=== PATIENT | female | born 1990 | race Caucasian/White ===

== ENCOUNTER 2017-01-17 12:36 | Emergency (ER) | payer OTHER ==
[~2017-01-17] VITALS: Wt 78.0 kg
[~2017-01-17 12:36] MED LIST: FERR240T9 PO; PRENAT PO
[2017-01-17] MEDS ORDERED: ONDANSETRON (ODT) 4 MG TAB ODT STA (12:57)
--- NOTE | 2017-01-17 12:57 | ERD ---
ER Documentation Chief Complaint Date/Time DATE: 01/17/17 TIME: 12:53 Chief Complaint R LOWER ABD PAIN FOR 1 HR. SUDDEN ONSET WITH NAUSEA NO VOMITING. HPI 26-year-old female who presents to the emergency room for right lower abdominal pain for 1 hour. Stated it is sudden onset with nausea but no vomiting. She has history of left ovarian cyst. Reports that she has slight difficulty walking due to her pain. Denies headache, loss of consciousness, dizziness, blurry vision, changes in vision, photophobia, facial pain, ear pain, throat pain, difficulty swallowing, neck pain, shoulder pain, chest pain, cough, hemoptysis, back pain, loss of appetite, vomiting, hematochezia, diarrhea, constipation, urinary symptoms, , the possibility of being , bladder and bowel incontinences, extremity weakness, extremity tenderness, numbness or tingling sensation, recent travel, recent exposure to illness, recent antibiotic use in the last 3 months, fever, chills. Allergy: No known drug allergies. PMH: Hyperthyroidism. Left ovarian cyst. Family medical history: Denies. AO LMP: 01/11/2017 Medications: Surgery: Denies. Primary Social History: Not working at this time. Denies smoking, use of alcohol, use of illegal drugs. ROS All systems reviewed and are negative except as per history of present illness. Medications Home Meds Active Scripts Ondansetron Hcl* (Zofran*) 4 Mg Tablet, 4 MG PO Q8H Y for NAUSEA AND/OR VOMITING , #30 TAB Prov:ELTON DOMINGUEZ F 01/17/17 Tramadol HCl (Tramadol HCl) 50 Mg Tablet, 50 MG PO Q6 Y for PAIN, #20 TAB Prov:LAZARA DOMINGUEZAR F 01/17/17 Reported Medications Ferrous Gluconate (Iron) 1 Tab Tablet, 1 TAB PO DAILY 06/28/15 Multivit/Min/Fol Ac/Iron/Pren* ( S*) 1 Tab Tab, 1 TAB PO DAILY, TAB 05/30/15 Allergies Allergies: Coded Allergies: No Known Allergy (Unverified , 11/21/14) PMhx/Soc History of Surgery: No Anesthesia Reaction: No Hx Neurological Disorder: No Hx Respiratory Disorders: No Hx Cardiac Disorders: No Hx Psychiatric Problems: No Hx Miscellaneous Medical Probl: Yes (HYPERTHYROIDISM; OVARIAN CYST) Hx Alcohol Use: No Hx Substance Use: No Hx Tobacco Use: No Physical Exam Vitals Vital Signs Date Time Temp Pulse Resp B/P Pulse Ox O2 Delivery O2 Flow Rate FiO2 01/17/17 12:38 98.8 71 20 138/84 9 Physical Exam CONSTITUTIONAL: Well-appearing; well-nourished; in no apparent distress. HEAD: Normocephalic; atraumatic. EYES: Conjunctiva clear, sclera non-icteric, EOM intact. PERRL Ears: Hearing intact. EACs clear, TMs non-bulging, non-inflamed, translucent & mobile, ossicles normal appearance, No obstructions, no erythema, no discharges Nose: No obstructions. No polyps. No external lesions. Mucosa non-inflamed. No external lesions, septum and turbinates normal. No rhinorrhea. No discharges. Frontal sinus is non-tender to palpation. Maxillary sinus is non-tender to palpation. MOUTH: Moist mucous membranes, no lesion, no obstructions, no vesicles, no thrush, patent airway Throat: Uvula in midline. Right tonsil is +1 with no erythema, no exudate. Left tonsil is +1 with no erythema, no exudate. Tolerating secretions well. Good gag reflex. Patent airway. Neck: Supple, without lesions, bruits, or adenopathy. No mass. Thyroid non- enlarged and non-tender to palpation. CHEST: Symmetrical chest. Respirations even and not labored. No retractions noted. CARDIOVASCULAR: Normal S1, S2. RRR. No murmurs, gallops. RESPIRATORY: Normal chest excursion with respiration; breath sounds clear and equal bilaterally; no wheezes, rhonchi, or rales. Breathing even and unlabored. Speaking in clear, full, and complete sentences w/ ease. ABDOMEN: Normal bowel sounds normal. Soft, round, non-distended, non-guarding, no tenderness, no rebound, no organomegaly, no masses, no pulsating abdominal mass. No hernia. No peritoneal signs. : No CVA tenderness. BACK: Symmetrical shoulder. Spine is midline without deformity, tenderness. No evidence of trauma or deformity. PELVIS: Stable pelvis. No evidence of trauma or deformity. MUSCULOSKELETAL: Normal gait and station. No misalignment, asymmetry, crepitation, defects, tenderness, masses, effusions, decreased range of motion, instability, atrophy or abnormal strength or tone in the head, neck, spine, ribs , pelvis or extremities. No calf tenderness. NEUROVASCULAR: Distal pulses are present. Pedal pulse are present, equal, and normal. Capillary refills are < 2 seconds. NEUROLOGIC: Alert and oriented x4. Speaks full and clear sentences. Cranial Nerves II-XII normal. Sensation to pain, touch, and proprioception normal. Grossly unremarkable. No neurologic deficits. Romberg test is negative. PSYCHOLOGICAL: The patients mood and manner are appropriate. No hallucinations , delusions. Not SI. Not HI. Has the capacity to decide for self SKIN: Normal for age and ethnicity; warm; dry; good turgor; no apparent lesions or exudates. No rashes, hives, discoloration. Intact. Result Diagram: 01/17/17 1318 01/17/17 1318 Results 24 hrs Laboratory Tests Test 01/17/17 13:18 White Blood Count 7.010^3/ul Red Blood Count 4.5510^6/ul Hemoglobin 12.5g/dl Hematocrit 38.1% Mean Corpuscular Volume 83.7fl Mean Corpuscular Hemoglobin 27.5pg Mean Corpuscular Hemoglobin Concent 32.8g/dl Red Cell Distribution Width 13.8% Platelet Count 88574^3/UL Mean Platelet Volume 11.6fl Neutrophils % 70.8% Lymphocytes % 22.0% Monocytes % 5.9% Eosinophils % 0.4% Basophils % 0.6% Nucleated Red Blood Cells % 0.0/100WBC Neutrophils # 4.910^3/ul Lymphocytes # 1.510^3/ul Monocytes # 0.410^3/ul Eosinophils # 0.010^3/ul Basophils # 0.010^3/ul Nucleated Red Blood Cells # 0.010^3/ul Urine Color LT. YELLOW Urine Clarity CLEAR Urine pH 6.5 Urine Specific [place] <=1.005 Urine Ketones NEGATIVE Urine Nitrite NEGATIVE Urine Bilirubin NEGATIVE Urine Urobilinogen 0.2 E.U./dL Urine Leukocyte Esterase 2+ Urine Microscopic RBC 0-2/HPF Urine Microscopic WBC 10-25/HPF Urine Squamous Epithelial Cells FEW Urine Bacteria FEW Urine Hemoglobin NEGATIVE Urine Glucose NEGATIVE% Urine Total Protein NEGATIVE Sodium Level 140mmol/L Potassium Level 4.1mmol/L Chloride Level 101mmol/L Carbon Dioxide Level 28mmol/L Anion Gap 15 Blood Urea Nitrogen 13mg/dl Creatinine 0.58mg/dl Glucose Level 101mg/dl Calcium Level 9.5mg/dl Total Bilirubin 0.3mg/dl Direct Bilirubin 0.00mg/dl Indirect Bilirubin 0.3mg/dl Aspartate Amino Transf (AST/SGOT) 25IU/L Alanine Aminotransferase (ALT/SGPT) 20IU/L Alkaline Phosphatase 39IU/L Total Protein 7.9g/dl Albumin 4.6g/dl Globulin 3.30g/dl Albumin/Globulin Ratio 1.39 Amylase Level 56U/L Lipase 41U/L Current Medications Medications (Trade) Dose Ordered Sig/Laurence Route PRN Reason Start Time Stop Time Status Last Admin Dose Admin Ondansetron HCl (Zofran Odt) 4 mg ONCE STAT ODT 01/17/17 12:57 01/17/17 13:00 DC 01/17/17 13:11 Acetaminophen/ Hydrocodone Bitart ([place] (5/325)) 1 tab ONCE ONCE PO 01/17/17 13:00 01/17/17 13:01 DC 01/17/17 13:12 Tramadol HCl (Ultram) 50 mg ONCE ONCE PO 01/17/17 15:30 01/17/17 15:31 Procedures/MDM Examination: Please see physical examination. Disease process, medical treatment was explained to the patient and family member. They verbalized understanding and agreed with the diagnostic tests, medical treatment, and follow-up care. Radiology: Pelvic ultrasound. Impression: Normal left ovary. The left ovarian cyst previously described resolved. 5.8 x 2.8 x 4.7 cm right ovarian cyst with low-level echoes. A minimally complex right ovarian cyst or endometrioma might present this fashion. Follow-up imaging is recommended in 2 menstrual cycles to ensure this resolves. Otherwise unremarkable pelvic and OB sonogram. Blood works: Reviewed. POC urine : Negative. Urinalysis: Reviewed. Treatment: [place]. Zofran. Tramadol. Re-evaluation: Denies neck pain, chest pain, back pain, abdominal pain, right upper abdominal pain, right lower abdominal pain, pelvic pain. No nausea and vomiting. Negative on Rovsing sign. Negative on [place] sign. Denies active bleeding. Ambulatory with steady gait without difficulty and without pain to abdomen. Consultation: None. Differential diagnosis: Ovarian cyst tumor versus ovarian cyst rupture versus ovarian torsion Medical decision makin-year-old female who presents to the emergency room for right lower abdominal pain for 1 hour. Stated it is sudden onset with nausea but no vomiting. She has history of left ovarian cyst. Reports that she has slight difficulty walking due to her pain. Patient's complaint, patient 's history about her complaint, my physical findings, diagnostic test results are consistent with my final diagnosis of right ovarian cyst. Case was discussed with emergency room supervising physician, Dr. Jeffrey Olivares agreed with my medical decision making. She also admitted patient to go home and just follow up with her own ENERGY SCHEDULER specialist. Medications prescribed are the following: Tramadol. Zofran. Patient and family member are made aware of the side effects and adverse reactions of the medications prescribed. Instructed on when to seek emergent and medical attention in case allergic/anaphylactic reactions or severe side effects and or adverse reactions to medications. Patient and family member verbalized understanding. Patient instructed Instructed to follow-up with his PCP in 24-48 hours. Follow-up with SENIOR COPYWRITER in the next 24-48 hours. Patient stated that she will make sure that she see her own SENIOR COPYWRITER in the next 24-48 hours. Instructed to Call 911 for chest pain, shortness of breath. Advised to come back here in ED as soon as possible for severity of symptoms which includes but not limited to: any new symptoms; shortness of breath/difficulty of breathing; cardiovascular changes; severe gastrointestinal symptoms; signs and symptoms of bleeding and or infection; signs of compartment syndrome/neurovascular changes; neurological changes/deficits. Patient and family member verbalized understanding. Upon discharge, patient is alert and oriented x 4, speaks full and clear sentences, denies pain, has no neurological deficits, has no neurovascular deficits, difficulty of breathing. Breathing even and unlabored. Lung sounds are clear to auscultation. Not in distress. Appears comfortable. Ambulatory with steady gait. Appears satisfied with care provided here in ED. Departure Diagnosis: Primary Impression: Ovarian cyst Condition: Good Additional Instructions: Patient instructed Instructed to follow-up with his PCP in 24-48 hours. Follow-up with SENIOR COPYWRITER in the next 24-48 hours. Patient stated that she will make sure that she see her own SENIOR COPYWRITER in the next 24-48 hours. Instructed to Call 911 for chest pain, shortness of breath. Advised to come back here in ED as soon as possible for severity of symptoms which includes but not limited to: any new symptoms; shortness of breath/difficulty of breathing; cardiovascular changes; severe gastrointestinal symptoms; signs and symptoms of bleeding and or infection; signs of compartment syndrome/neurovascular changes; neurological changes/deficits. Patient and family member verbalized understanding. ELTON DOMINGUEZ Jan 17, 2017 12:57
[2017-01-17] MEDS ORDERED: HYDROCODONE/APAP (5/325) TAB PO ONE (13:00)
[2017-01-17 13:24] LABS: ADD SCAN DIFF NO
[2017-01-17 13:27] LABS: BASOPHILS % 0.6 % (0.0-2.0); EOSINOPHILS % 0.4 % (0.0-7.0); HEMATOCRIT 38.1 % (37.0-47.0); HEMOGLOBIN 12.5 g/dl (12.0-16.0); LYMPHOCYTES # 1.5 10^3/ul (0.8-2.9); MEAN CORPUSCULAR HEMOGLOBIN 27.5 pg (29.0-33.0); MEAN CORPUSCULAR HGB CONC 32.8 g/dl (32.0-37.0); MEAN CORPUSCULAR VOLUME 83.7 fl (82.0-101.0); MEAN PLATELET VOLUME 11.6 fl (7.4-10.4); MONOCYTE # 0.4 10^3/ul (0.3-0.9); MONOCYTES % 5.9 % (0.0-11.0); NEUTROPHIL # 4.9 10^3/ul (1.6-7.5); NEUTROPHILS % 70.8 % (39.0-77.0); PLATELET COUNT 215 10^3/UL (140-415); RED BLOOD COUNT 4.55 10^6/ul (4.20-5.40); RED CELL DISTRIBUTION WIDTH 13.8 % (11.5-14.5)
[2017-01-17 13:29] LABS: ADD UMIC YES; URINE BILIRUBIN (Dip) NEGATIVE (NEGATIVE); URINE BLOOD (Dip) NEGATIVE (NEGATIVE); URINE COLOR LT. YELLOW (YELLOW); URINE GLUCOSE (Dip) NEGATIVE (NEGATIVE); URINE KETONES (Dip) NEGATIVE (NEGATIVE); URINE LEUKOCYTE ESTERASE (Dip) 2+ (NEGATIVE); URINE NITRITE (Dip) NEGATIVE (NEGATIVE); URINE TOTAL PROTEIN (Dip) NEGATIVE (NEGATIVE); URINE UROBILINOGEN (Dip) 0.2 E.U./dL (0.1-1.0)
[2017-01-17 13:42] LABS: ALBUMIN 4.6 g/dl (3.3-4.9)
[2017-01-17 13:43] LABS: POTASSIUM 4.1 mmol/L (3.5-5.1)
[2017-01-17 13:45] LABS: ALBUMIN/GLOBULIN RATIO 1.39; BILIRUBIN,INDIRECT 0.3 mg/dl (0-1.1); BILIRUBIN,TOTAL 0.3 mg/dl (0.2-1.3); CALCIUM 9.5 mg/dl (8.4-10.2); CREATININE 0.58 mg/dl (0.44-1.00); TOTAL PROTEIN 7.9 g/dl (6.1-8.1)
[2017-01-17 13:51] LABS: BACTERIA,URINE FEW; SQUAMOUS EPITHELIAL CELL,UR FEW; URINE RBCS 0-2 /HPF (0)
--- NOTE | 2017-01-17 14:52 | RADRPT ---
PROCEDURE: US Pelvis. CLINICAL INDICATION: 3.6 x 1.7 by 1.9 cm left ovarian cyst previously noted in the left ovary on J anuary 2014. TECHNIQUE: Multiple sonographic images of the pelvis were obtained utilizing a transabdominal and endovaginal technique. The images were reviewed on a PACS workstation. COMPARISON: OB sonogram 11/21/2014. FINDINGS: The uterus is visualized and measures 7.3 cm sagittal by 4.7 cm AP by 4.9 cm in width. The endometri al echo complex is normal and measures 0.67 cm. There is no evidence for free fluid. The right ovary has a normal echotexture and measures 4.4 by 5.6 by 6.9 cm . A 5.8 x 2.8 by 4.7 cm right ovarian cyst with low-level echoes is identified right ovary. The left ovary has a normal echotexture and measures 2.9 by 3.4 x 1.8 cm. There is a persistent cys t in the left ovary measuring about 0.7 x 1.6 x 0.6 cm. This was reevaluated with a different gain s etting. It is composed of multiple small follicles. No adnexal masses are noted. IMPRESSION: 1. Normal left ovary. The left ovarian cyst previously described resolved. 2. 5.8 x 2.8 by 4.7 cm right ovarian cyst with low-level echoes. A minimally complex right ovarian cyst or endometrioma might present this fashion. Follow-up imaging is recommended in 2 menstrual cy cles to ensure this results. 3. Otherwise unremarkable pelvic and OB sonogram. RPTAT:AAJJ Physician Nicholas Date Time Electronically viewed and signed by Physician Nicholas on 01/17/2017 14:51 /
[2017-01-17] MEDS ORDERED: TRAM50TA2 PO (15:18)
[2017-01-17] MEDS ORDERED: ONDA4TAB8 PO (15:19)
[2017-01-17] MEDS ORDERED: traMADol 50 MG TAB PO ONE (15:30)
[2017-01-17 15:39] VITALS: BP 130/80; PULSE 70; RESP 20; TEMP 98.2
--- NOTE | 2017-01-20 23:54 | ERD ---
ER Documentation Chief Complaint Date/Time DATE: 01/20/17 TIME: 23:28 Chief Complaint R LOWER ABD PAIN FOR 1 HR. SUDDEN ONSET WITH NAUSEA NO VOMITING. HPI 26-year-old female presenting with lower abdominal pain. She has had the pain for several days. She was seen here on January 10 and given tramadol. She had an ultrasound that showed that she had bilateral ovarian cysts. She states that the tramadol does not control her pain very well. She has had no new symptoms. She does complain of nausea which she had before but no vomiting. She has no associated fevers, chills, vaginal bleeding, diarrhea. She has been taking naproxen as well which has not been helping. She is here asking for stronger pain medications. ROS All systems reviewed and are negative except as per history of present illness. Medications Home Meds Active Scripts Hydrocodone/Acetaminophen ([place] 5-325 Tablet) 1 Each Tablet, 1 EACH PO Q6 Y for SEVERE PAIN LEVEL 7-10, #7 TAB Prov:JESÚS SCHULTZ MD 01/20/17 Ondansetron Hcl* (Zofran*) 4 Mg Tablet, 4 MG PO Q8H Y for NAUSEA AND/OR VOMITING , #30 TAB Prov:ELTON DOMINGUEZ 01/17/17 Tramadol HCl (Tramadol HCl) 50 Mg Tablet, 50 MG PO Q6 Y for PAIN, #20 TAB Prov:ELTON DOMINGUEZ F 01/17/17 Reported Medications Ferrous Gluconate (Iron) 1 Tab Tablet, 1 TAB PO DAILY 06/28/15 Multivit/Min/Fol Ac/Iron/Pren* ( S*) 1 Tab Tab, 1 TAB PO DAILY, TAB 05/30/15 Allergies Allergies: Coded Allergies: No Known Allergy (Unverified , 11/21/14) PMhx/Soc History of Surgery: No Anesthesia Reaction: No Hx Neurological Disorder: No Hx Respiratory Disorders: No Hx Cardiac Disorders: No Hx Psychiatric Problems: No Hx Miscellaneous Medical Probl: Yes (HYPERTHYROIDISM; OVARIAN CYST) Hx Alcohol Use: No Hx Substance Use: No Hx Tobacco Use: No Smoking Status: Never smoker FmHx Family History: No diabetes Physical Exam Vitals Vital Signs Date Time Temp Pulse Resp B/P Pulse Ox O2 Delivery O2 Flow Rate FiO2 01/17/17 15:39 98.2 70 20 130/80 98 01/17/17 12:38 98.8 71 20 138/84 9 Physical Exam Const: No apparent distress, nontoxic Head: Atraumatic Eyes: Normal Conjunctiva ENT: Normal External Ears, Nose and Mouth. Neck: Full range of motion..~ No meningismus. Resp: Clear to auscultation bilaterally Cardio: Regular rate and rhythm, no murmurs Abd: Soft, non tender, non distended. Normal bowel sounds Skin: No petechiae or rashes Back: No midline or flank tenderness Ext: No cyanosis, or edema Neur: Awake and alert Psych: Normal Mood and Affect Result Diagram: 01/17/17 1318 01/17/17 1318 Results 24 hrs Laboratory Tests Test 01/17/17 13:18 White Blood Count 7.010^3/ul Red Blood Count 4.5510^6/ul Hemoglobin 12.5g/dl Hematocrit 38.1% Mean Corpuscular Volume 83.7fl Mean Corpuscular Hemoglobin 27.5pg Mean Corpuscular Hemoglobin Concent 32.8g/dl Red Cell Distribution Width 13.8% Platelet Count 76442^3/UL Mean Platelet Volume 11.6fl Neutrophils % 70.8% Lymphocytes % 22.0% Monocytes % 5.9% Eosinophils % 0.4% Basophils % 0.6% Nucleated Red Blood Cells % 0.0/100WBC Neutrophils # 4.910^3/ul Lymphocytes # 1.510^3/ul Monocytes # 0.410^3/ul Eosinophils # 0.010^3/ul Basophils # 0.010^3/ul Nucleated Red Blood Cells # 0.010^3/ul Urine Color LT. YELLOW Urine Clarity CLEAR Urine pH 6.5 Urine Specific [place] <=1.005 Urine Ketones NEGATIVE Urine Nitrite NEGATIVE Urine Bilirubin NEGATIVE Urine Urobilinogen 0.2 E.U./dL Urine Leukocyte Esterase 2+ Urine Microscopic RBC 0-2/HPF Urine Microscopic WBC 10-25/HPF Urine Squamous Epithelial Cells FEW Urine Bacteria FEW Urine Hemoglobin NEGATIVE Urine Glucose NEGATIVE% Urine Total Protein NEGATIVE Sodium Level 140mmol/L Potassium Level 4.1mmol/L Chloride Level 101mmol/L Carbon Dioxide Level 28mmol/L Anion Gap 15 Blood Urea Nitrogen 13mg/dl Creatinine 0.58mg/dl Glucose Level 101mg/dl Calcium Level 9.5mg/dl Total Bilirubin 0.3mg/dl Direct Bilirubin 0.00mg/dl Indirect Bilirubin 0.3mg/dl Aspartate Amino Transf (AST/SGOT) 25IU/L Alanine Aminotransferase (ALT/SGPT) 20IU/L Alkaline Phosphatase 39IU/L Total Protein 7.9g/dl Albumin 4.6g/dl Globulin 3.30g/dl Albumin/Globulin Ratio 1.39 Amylase Level 56U/L Lipase 41U/L Current Medications Medications (Trade) Dose Ordered Sig/Laurence Route PRN Reason Start Time Stop Time Status Last Admin Dose Admin Ondansetron HCl (Zofran Odt) 4 mg ONCE STAT ODT 01/17/17 12:57 01/17/17 13:00 DC 01/17/17 13:11 Acetaminophen/ Hydrocodone Bitart ([place] (5/325)) 1 tab ONCE ONCE PO 01/17/17 13:00 01/17/17 13:01 DC 01/17/17 13:12 Tramadol HCl (Ultram) 50 mg ONCE ONCE PO 01/17/17 15:30 01/17/17 15:31 DC 01/17/17 15:31 Procedures/MDM Patient is presenting with lower abdominal pain secondary to ovarian cysts. Her pain has not increased in severity but is uncontrolled. Her vitals are stable. She is not have any current vaginal bleeding or signs of sepsis. I do not suspect acute surgical abdomen. I will discharge the patient with [place] and again stressed the importance of follow-up with gynecology. Return precautions were discussed in length. Patient was discharged in stable condition. Departure Diagnosis: Primary Impression: Ovarian cyst Laterality: bilateral Qualified Code: N83.201 - Cysts of both ovaries Condition: Good Patient Instructions: What Are Ovarian Cysts?, Ovarian Cyst, Pelvic Pain, Unknown Cause Referrals: [facility] YOU HAVE RECEIVED A MEDICAL SCREENING EXAM AND THE RESULTS INDICATE THAT YOU DO NOT HAVE A CONDITION THAT REQUIRES URGENT TREATMENT IN THE EMERGENCY DEPARTMENT. FURTHER EVALUATION AND TREATMENT OF YOUR CONDITION CAN WAIT UNTIL YOU ARE SEEN IN YOUR DOCTORS OFFICE WITHIN THE NEXT 1-2 DAYS. IT IS YOUR RESPONSIBILITY TO MAKE AN APPOINTMENT FOR FOLOW-UP CARE. IF YOU HAVE A PRIMARY DOCTOR --you should call your primary doctor and schedule an appointment IF YOU DO NOT HAVE A PRIMARY DOCTOR YOU CAN CALL OUR PHYSICIAN REFERRAL HOTLINE AT IF YOU CAN NOT AFFORD TO SEE A PHYSICIAN YOU CAN CHOSE FROM THE FOLLOWING [facility] [address] [facility] [address] [facility] [address] [facility] [facility] [address] [facility] [facility] [address] [facility] [facility]. [address] [facility] [address] [facility] Usted se vila hecho un examen mdico de control que le indica que no est en raissa condicin que requiera tratamiento urgente en el Departamento de Emergencia. Un estudio ms profundo y el tratamiento de yoon condicin pueden esperar sin ningn riesgo hasta que usted sea atendida/o en el consultorio de yoon mdico o raissa cl laura. Es responsabilidad suya arreglar raissa mariely para el seguimiento del michael. MANEJO DE CONDICIONES NO URGENTES EN EL FUTURO 1) Si usted tiene un mdico de atencin primaria: Usted debera llamar a yoon mdico de atencin primaria antes de venir al departamento de emergencia. Despus de las horas de consultorio, yoon doctor o yoon asociado/a est disponible por telfono. El mdico o enfermero de mukund en el servicio telefnico puede asesorarle por ryan medio para atender el problema, o michael contrario se puede programar raissa mariely. 2) Si usted no tiene un mdico de atencin primaria: Llame al mdico o clnica de referencia que aparece abajo keeley las horas de consultorio para hacer raissa mariely para que le vean. CLINICAS: [facility] [phone] [address] [facility] [phone] [facility] [phone] [facility] [phone] [facility] [phone] [address] [facility]. [phone] [address] Additional Instructions: Patient instructed Instructed to follow-up with his PCP in 24-48 hours. Follow-up with VEHICLE MONITOR TECHNICIAN in the next 24-48 hours. Patient stated that she will make sure that she see her own VEHICLE MONITOR TECHNICIAN in the next 24-48 hours. Instructed to Call 911 for chest pain, shortness of breath. Advised to come back here in ED as soon as possible for severity of symptoms which includes but not limited to: any new symptoms; shortness of breath/difficulty of breathing; cardiovascular changes; severe gastrointestinal symptoms; signs and symptoms of bleeding and or infection; signs of compartment syndrome/neurovascular changes; neurological changes/deficits. Patient and family member verbalized understanding. JESÚS SCHULTZ MD Jan 20, 2017 23:53
== END 2017-01-17 15:38 | disposition home or self-care (01) ==
LOC: FTE 12:36
DX: N83.201 Unspecified ovarian cyst, right side (principal)
CPT/HCPCS: 76830; 76856; 80053; 81001; 82150; 83690; 85025; 87086; Z7502; Z7610; 81003

== ENCOUNTER 2017-01-20 14:45 | Emergency (ER) | payer OTHER ==
[~2017-01-20] VITALS: Wt 78.0 kg
[~2017-01-20 14:45] MED LIST changes: +ONDA4TAB8 PO; +TRAM50TA2 PO
[2017-01-20] MEDS ORDERED: ONDANSETRON (ODT) 4 MG TAB ODT STA (16:10)
[2017-01-20] MEDS ORDERED: HYDR-906 PO (16:12)
== END 2017-01-20 16:27 | disposition home or self-care (01) ==
LOC: FTE 14:45
DX: N83.201 Unspecified ovarian cyst, right side (principal); R11.0 Nausea
CPT/HCPCS: 99283